=== PATIENT | female | born 1970 | race Caucasian/White ===

== ENCOUNTER 2022-05-09 12:10 | Emergency (ER) | payer OTHER ==
[~2022-05-09 12:10] MED LIST: ADVIL200 M1 PO; LIPITOR 10MG TA10 MG PO; PEPCID AC20 MG PO; RIZATRIPTAN10 MG PO; ZOFRAN4 MG PO; [UNRECOGNIZED DRUG - OTHER] PO; [UNRECOGNIZED DRUG - OTHER] PO
[2022-05-09 13:12] LABS: BASOPHIL 0.4 % (0-2); EOSINOPHIL 1.8 % (0-5); HCT 41.9 % (37.0-47.0); HGB 14.3 g/dl (12.5-16.0); LYMPHOCYTE 19.7 % (15-48); MCH 29.9 pg (25.0-31.0); MCHC 34.1 g/dL (32.0-36.0); MCV 87.7 fL (78.0-100.0); MONOCYTE 7.8 % (0-12); NEUTROPHIL 69.8 % (41-80); NRBC 0; PLT 297 K/uL (150-400); RBC 4.78 M/uL (4.20-5.40); RDW 12.9 % (11.5-14.0); WBC 8.1 K/uL (4.0-10.5)
[2022-05-09 13:45] LABS: BUN 23 mg/dL (7-18); BUN/CREAT RATIO (CALC) 34.8 RATIO; CHLORIDE 102 mmol/L (98-107); CO2 (BICARBONATE) 28 mmol/L (21-32); CREATININE 0.66 mg/dL (0.51-0.95); GLUCOSE 91 mg/dL (74-106); POTASSIUM 4.3 mmol/L (3.5-5.1)
[2022-05-09 13:58] LABS: CORONAVIRUS 2019 SARS-COV-2 NEGATIVE (NEGATIVE); INFLUENZA A NAA NEGATIVE (NEGATIVE)
[2022-05-09 16:01] LABS: BILIRUBIN NEGATIVE (NEGATIVE); BLOOD TRACE-INTACT Ery/uL (NEGATIVE); CLARITY CLEAR (CLEAR); COLOR YELLOW (YELLOW); GLUCOSE (U) NORMAL (NORMAL); LEUKOCYTES 3+ Leu/uL (NEGATIVE); NITRITE NEGATIVE (NEGATIVE); PROTEIN NEGATIVE (NEGATIVE); UROBILINOGEN 0.2 mg/dL (0.2-1.0)
[2022-05-09] MEDS ORDERED: BACTRIM DS TAB1 EACH PO (16:16)
== END 2022-05-09 16:24 | disposition home or self-care (01) ==
LOC: FER 12:10
PROVIDERS: Nurse Practitioner Family
DX: R00.2 Palpitations (principal); N39.0 Urinary tract infection, site not specified; Z20.822 Contact with and (suspected) exposure to COVID-19; Z28.310 Unvaccinated for COVID-19
CPT/HCPCS: 36415; 71045; 80048; 81001; 84439; 84443; 84484; 85025; 87088; 93005; U0002